=== PATIENT | male | born 2000 | race Caucasian/White ===

== ENCOUNTER 2018-03-09 19:48 | Emergency (ER) | payer SELFPAY ==
[~2018-03-09] VITALS: Ht 182.9 cm; Wt 73.4 kg
[2018-03-09 19:51] VITALS: BP 145/95; PULSE 56; TEMP 98.1
[2018-03-09] MEDS ORDERED: CEPHALEXIN500 M1 PO (20:50)
[2018-03-09] MEDS ORDERED: LEVAQUIN 750MG750 M1 PO (20:50)
== END 2018-03-09 20:54 | disposition home or self-care (01) ==
LOC: COL.ER 19:48
DX: S60.352A Superficial foreign body of left thumb, initial encounter (principal); W45.8XXA Other foreign body or object entering through skin, initial encounter; Y92.830 Public park as the place of occurrence of the external cause